=== PATIENT | male | born 1970 | race Caucasian/White ===

== ENCOUNTER → 2019-01-15 06:57 | Day surgery (SDC) | payer OTHER ==
[~2019-01-15 06:57] MED LIST: Clopidogrel TAB* 300 MG ONE; Heparin 2 UNITS/ML IVPREMIX* 3,000 UNIT/1,500 ML BAG IV ONE; Heparin(*) 1000 UNIT/ML 10 ML VIAL CATH LAB IV ONE; Iohexol 350 (CONTRAST) 200 ML MDV IV ONE; LORazepam TAB(*) 1 MG ONE; Lidocaine 1% INJ* 10 MG/ML 30 ML SDV ONE; Midazolam* 1 MG/ML 5 ML VIAL (5 MG) ONE; Naloxone* 0.4 MG/ML 1 ML VIAL ONE; fentaNYL* 50 MCG/ML 2 ML VIAL (100 MCG VIAL) ONE; nitroGLYCERIN DRIP* 25,000 MCG/250 ML BTL ONE
--- NOTE | 2019-01-15 11:23 | PN ---
Progress Note - Progress Note Date of Service: 01/15/19 SOAP: Subjective: No pain complaints in A&P or left leg. No groin pain. Objective: 138/85, p 74, O2 97%, RR 14 NAD, AAO x 3 Left groin is soft, nontender Dressing is clean and dry 2+ pulses are readily palpable at left CABLE SPLICER, pop, DPA and DIRECTOR VOICE Left leg neuromuscular intact grossly Assessment: 48 YOM status post pelvic arteriography and stenting of focal left SIENNA occlusion with 6 mm x 37 mm bare metal stent, subsequently inflated to 7mm. Plan: 1. Bed rest until 1230. 2. Start Plavix 300 mg PO at 1130 followed by Plavix 75 mg PO daily x 3 months. 3. ASA 81 mg PO daily for life. 4. Routine follow up with [facility] and IR clinic visit in ~1 month. 5. Encouraged again to quit smoking.
[2019-01-15 12:34] VITALS: BP 154/89
== END | disposition home or self-care (01) ==
LOC: CHICATH 06:57
PROVIDERS: ATTEND Radiology Diagnostic Radiology
DX: I70.222 Atherosclerosis of native arteries of extremities with rest pain, left leg (principal); M79.605 Pain in left leg; M51.36 Other intervertebral disc degeneration, lumbar region; Z72.0 Tobacco use; M19.90 Unspecified osteoarthritis, unspecified site; K86.1 Other chronic pancreatitis; R10.9 Unspecified abdominal pain; G40.89 Other seizures
CPT/HCPCS: 37252; 75736; 76937; 99156; 99157; A9270-GY; C1725; C1753; C1760; C1769; C1887; J1644; J2250; J2310; J3010